=== PATIENT | male | born 1975 | race Two or more races ===

== ENCOUNTER 2019-11-14 16:22 | Inpatient (IN) | payer OTHER ==
[~2019-11-14] VITALS: Ht 170.2 cm; Wt 75.3 kg
[2019-11-14] MEDS ORDERED: ONDANSETRON HCL 4MG/2ML INJ IV STA (17:15)
[2019-11-14] MEDS ORDERED: SODIUM CHLORIDE 0.9% 1,000 ML IV ONE (17:15)
[2019-11-14 17:45] LABS: BASOPHILS % 0.2 % (0.0-2.0); HEMATOCRIT. 40.6 % (42.0-52.0); LYMPHOCYTES % 7.1 % (20.0-50.0); MEAN CORPUSCULAR HEMOGLOBIN 31.5 pg (28.0-32.0); MEAN CORPUSCULAR VOLUME 91.2 fL (80.0-94.0); MEAN PLATELET VOLUME 7.1 fl (7.4-10.4); MONOCYTES % 3.2 % (2.0-8.0); NEUTROPHILS % 89.5 % (40.0-76.0); PLATELET 357 x1000/uL (130-400); RED BLOOD CELL COUNT 4.45 mill/uL (4.7-6.1); RED CELL DISTRIBUTION WIDTH 14.4 % (11.6-14.6)
[2019-11-14 17:52] LABS: CHLORIDE 102 mEq/L (98-107)
[2019-11-14 18:00] LABS: INR 1.1; PROTHROMBIN TIME 11.2 sec (9.6-11.0)
[2019-11-14] MEDS ORDERED: CLONIDINE 0.1MG TABLET PO ONE ×2 (18:00→19:30)
[2019-11-14 19:23] LABS: CLARITY URINE CLEAR (CLEAR); COLOR URINE YELLOW (YELLOW); KETONES URINE 3+ (NEGATIVE); LEUKOCYTE ESTERASE URINE NEGATIVE (NEGATIVE); NITRITE URINE NEGATIVE (NEGATIVE); OCCULT BLOOD URINE NEGATIVE (NEGATIVE); PH URINE 7.5 (4.5-8.0); PROTEIN URINE 1+ (NEGATIVE); SPECIFIC GRAVITY URINE 1.024 (1.005-1.030)
[2019-11-14] MEDS ORDERED: LABETALOL HCL 20MG/4ML CARPUJECT IV ONE (19:45)
[2019-11-14] MEDS ORDERED: LABETALOL 5MG/ML SYR 20 MG/4 ML SYRINGE IV NR (20:00)
[2019-11-14 20:08] LABS: *AMPHETAMINES SCREEN URINE NEGATIVE (NEGATIVE); *BENZODIAZEPINES SCREEN URINE NEGATIVE (NEGATIVE); *COCAINE SCREEN URINE NEGATIVE (NEGATIVE); CANNABINOID URINE SCREEN PRESUMTIVE POSITIVE (NEGATIVE)
[2019-11-14 20:09] LABS: METHADONE URINE SCREEN NEGATIVE (NEGATIVE); OPIATES URINE SCREEN NEGATIVE (NEGATIVE); PHENCYCLIDINE URINE SCREEN NEGATIVE (NEGATIVE)
[2019-11-14 20:12] LABS: *BARBITURATES SCREEN URINE NEGATIVE (NEGATIVE)
[2019-11-14] MEDS ORDERED: ENALAPRIL 5MG TABLET PO SCH (21:45)
[2019-11-15] MEDS ORDERED: HYDROCODONE/ACETAMINOPHEN 5/325MG TABLET PO PRN (01:30)
[2019-11-15] MEDS ORDERED: ONDANSETRON HCL 4MG/2ML INJ IV PRN (01:30)
[2019-11-15] MEDS ORDERED: MAGNESIUM/ALUMINUM HYDROXIDE/SIMETHICONE 30ML UDC PO PRN (01:30)
[2019-11-15] MEDS ORDERED: GUAIFENESIN 200MG/10ML SUGAR FREE UDC PO PRN (01:30)
[2019-11-15] MEDS: AMLODIPINE 10MG TABLET PO SCH ×2 (04:10→09:17)
[2019-11-15] MEDS: LISINOPRIL 40MG TABLET PO SCH (05:20)
[2019-11-15 06:45] VITALS: BP 179/105
[2019-11-15] MEDS: CLONIDINE 0.1MG TABLET PO PRN ×2 (06:51→13:52)
[2019-11-15 08:00] VITALS: BP 180/102
[2019-11-15] MEDS: METOPROLOL TARTRATE 25MG TABLET PO SCH ×2 (09:18→20:51)
[2019-11-15] MEDS: ASPIRIN 81MG EC TABLET PO SCH (09:18)
[2019-11-15] MEDS: HYDRALAZINE HCL 100MG TABLET PO SCH ×2 (11:15→20:51)
[2019-11-15 12:00] VITALS: BP 164/100
[2019-11-15 16:00] VITALS: BP 150/99
[2019-11-15 20:00] VITALS: BP 153/84
[2019-11-15] MEDS: ACETAMINOPHEN 325MG TABLET PO PRN (20:55)
[2019-11-15] MEDS ORDERED: ATORVASTATIN CALCIUM 40MG TABLET PO SCH (21:00)
[2019-11-16] VITALS: BP 154/90
[2019-11-16 04:00] VITALS: BP 158/102
[2019-11-16] MEDS: CLONIDINE 0.1MG TABLET PO PRN (05:30)
[2019-11-16] MEDS: ACETAMINOPHEN 325MG TABLET PO PRN ×2 (05:31→11:56)
[2019-11-16 07:02] LABS: BASOPHILS % 0.4 % (0.0-2.0); EOSINOPHILS % 0.2 % (0.0-5.0); HEMATOCRIT. 41.7 % (42.0-52.0); HEMOGLOBIN. 14.4 g/dL (14.0-18.0); LYMPHOCYTES % 11.1 % (20.0-50.0); MEAN CORPUSCULAR HEMOGLOBIN 30.9 pg (28.0-32.0); MEAN CORPUSCULAR VOLUME 89.6 fL (80.0-94.0); MEAN PLATELET VOLUME 7.1 fl (7.4-10.4); MONOCYTES % 7.5 % (2.0-8.0); NEUTROPHILS % 80.8 % (40.0-76.0); PLATELET 352 x1000/uL (130-400); RED BLOOD CELL COUNT 4.66 mill/uL (4.7-6.1); RED CELL DISTRIBUTION WIDTH 14.4 % (11.6-14.6)
[2019-11-16 07:38] LABS: CHLORIDE 96 mEq/L (98-107)
[2019-11-16 07:58] LABS: LDL CHOLESTEROL 206 mg/dL (5-100)
[2019-11-16 07:59] LABS: HDL CHOLESTEROL 57 mg/dL (40-59)
[2019-11-16 08:00] VITALS: BP 137/92
[2019-11-16] MEDS: AMLODIPINE 10MG TABLET PO SCH (08:15)
[2019-11-16] MEDS: HYDRALAZINE HCL 100MG TABLET PO SCH (08:15)
[2019-11-16] MEDS: LISINOPRIL 40MG TABLET PO SCH (08:16)
[2019-11-16] MEDS: METOPROLOL TARTRATE 25MG TABLET PO SCH (08:16)
[2019-11-16] MEDS: ASPIRIN 81MG EC TABLET PO SCH (08:16)
[2019-11-16] MEDS ORDERED: POTASSIUM CHLORIDE 20MEQ TABLET SR PO NR (11:00)
[2019-11-16] MEDS ORDERED: CLOPIDOGREL 75MG TABLET PO SCH (11:00)
[2019-11-16 11:40] VITALS: BP_SYST 131; BP_SYST 137; BP_DIAS 82; BP_DIAS 92
[2019-11-16 11:51] VITALS: BP 131/82
[2019-11-16] MEDS ORDERED: HYDRALAZINE HCL 100MG TABLET PO SCH (14:00)
== END 2019-11-16 15:55 | disposition home or self-care (01) | DRG 66 ==
LOC: ER 16:22 → 6WST 22:55 → EDBEDREQ 23:14 → ENRESERV 11-15 01:22
PROVIDERS: ADMIT Hospitalist; ATTEND Hospitalist
DX: I63.542 Cerebral infarction due to unspecified occlusion or stenosis of left cerebellar artery (principal); I16.0 Hypertensive urgency; E78.5 Hyperlipidemia, unspecified; F12.129 Cannabis abuse with intoxication, unspecified; R51.9 Headache, unspecified; R42 Dizziness and giddiness; Z82.3 Family history of stroke; Z79.899 Other long term (current) drug therapy
CPT/HCPCS: 36415; 70544; 70551; 71045; 80053; 80061; 80305; 81003; 83036; 84484; 85025; 93005; 93880; 93970; 97162; 99285; J2405; J3490; J7030